=== PATIENT | male | born 1965 | race Hispanic/Latino ===

== ENCOUNTER 2017-09-01 10:41 | Emergency (ER) | payer BC ==
[2017-09-01 11:19] VITALS: PULSE 89; TEMP 98.2; BMI 36.5
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
[2017-09-01 11:52] VITALS: BP 123/81; RESP 18; O2SAT 96
== END 2017-09-01 12:09 | disposition home or self-care (01) ==
LOC: ED 10:41
DX: S70.12XA Contusion of left thigh, initial encounter (principal); S80.212A Abrasion, left knee, initial encounter; S80.211A Abrasion, right knee, initial encounter; V43.52XA Car driver injured in collision with other type car in traffic accident, initial encounter; Y92.488 Other paved roadways as the place of occurrence of the external cause
CPT/HCPCS: 82948; 96372; 99285; J1885